=== PATIENT | male | born 1980 | race Caucasian/White ===

== ENCOUNTER 2017-04-22 18:33 | Emergency (ER) | payer SELFPAY ==
[~2017-04-22] VITALS: Ht 177.8 cm; Wt 111.0 kg
[2017-04-22 18:42] VITALS: BP 145/100
== END 2017-04-22 20:20 | disposition left against medical advice (07) ==
LOC: ER 20:15
DX: R07.9 Chest pain, unspecified (principal); Z53.21 Procedure and treatment not carried out due to patient leaving prior to being seen by health care provider
CPT/HCPCS: 93005